=== PATIENT | female | born 1955 ===

== ENCOUNTER 2024-08-21 12:17 | Outpatient (CLI) | payer MEDICARE, SELFPAY ==
--- NOTE | 2024-08-21 | DI.US_ITS ---
Exam(s) US ABDOMEN LIMITED EXAM: US ABDOMEN LIMITED CLINICAL HISTORY: RUQ ABD PAIN R10.11 TECHNIQUE: Ultrasound abdomen performed using standard protocol. COMPARISON: No exams were available for comparison FINDINGS: PANCREAS: Normal where visualized. LIVER: Normal. Hepatopetal flow in the Portal Vein. The liver measures in 13.3 cm length. No evidence of a hepatic mass. GALLBLADDER:There is a 1.6 cm immobile stone in the neck of the gallbladder. There is sludge and debris seen within the gallbladder. No evidence of wall thickening. No pericholecystic fluid identified. BILIARY SYSTEM: Common bile duct measures < 7 mm. No intrahepatic biliary ductal dilation. SMITH'S SIGN: Positive RIGHT KIDNEY: Kidney is normal in size. No evidence of renal calculi. No evidence of hydronephrosis. No renal mass or cyst identified. ASCITES: None seen. IMPRESSION: Immobile 1.6 cm gallstone with tenderness in the right upper quadrant on the examination. The findings are suspicious for acute cholecystitis. DATA REPOSITORY:
== END 2024-08-21 12:37 ==
PROVIDERS: Visit Provider Physician Assistant Medical
DX: R10.11 Right upper quadrant pain (principal); R93.5 Abnormal findings on diagnostic imaging of other abdominal regions, including retroperitoneum
CPT/HCPCS: 76705

== ENCOUNTER 2024-08-21 16:35 | Outpatient (REF) | payer MEDICARE, SELFPAY ==
[2024-08-21 15:51] LABS: Abs Immature Grans 0.03 10^3/uL (0.0-0.06); Absolute Basophil Count 0.07 10^3/uL (0.0-0.2); Absolute Lymphocyte Count 1.72 10^3/uL (1.2-3.4); Absolute Monocyte Count 0.56 10^3/uL (0.1-0.8); Absolute Neutrophil Count 6.23 10^3/uL (1.2-6.7); Basophils % 0.8 %; Eosinophils % 3.4 %; HCT 41.2 % (36.0-46.0); HGB 13.4 g/dL (11.2-15.7); Immature Grans % 0.3 %; Lymphocytes % 19.3 %; MCHC 32.5 % (32.0-36.0); MCV 92 fL (80-95); MPV 10.2 fL (8.0-11.0); Monocytes % 6.3 %; Neutrophils % 69.9 %; Platelet Count 235 10^3/uL (130-400); RBC 4.46 10^6/uL (3.93-5.22); RDW 12.6 % (11.7-14.6); RDW-SD 42.9 fL; WBC 8.91 10^3/uL (4.4-10.8)
[2024-08-21 16:09] LABS: ALT 27 U/L (14-59); AST 14 U/L (15-37); Albumin 3.9 g/dL (3.4-5.0); Alkaline Phosphatase 89 U/L (46-116); BUN 9 mg/dL (7-18); Bilirubin, Total 0.8 mg/dL (0.2-1.0); Calcium 9.4 mg/dL (8.5-10.1); Chloride 104 mmol/L (98-107); Estimated GFR 60.23 (mL/min/1.73m2); Glucose 92 mg/dL (74-106); Lipase 156 U/L (<78); Potassium 4.6 mmol/L (3.5-5.1); Sodium 139 mmol/L (136-145); Total Protein 7.4 g/dL (6.4-8.2)
== END 2024-08-21 16:36 | disposition home or self-care (01) ==
LOC: LBN 16:35
PROVIDERS: Visit Provider Physician Assistant Medical
DX: R10.11 Right upper quadrant pain (principal)
CPT/HCPCS: 80053; 83690; 85025

== ENCOUNTER → 2024-09-03 10:46 | Outpatient (BNVA) | payer MEDICARE, SELFPAY | PROVIDERS: Visit Provider Surgery | DX: K81.0 Acute cholecystitis (principal); R10.11 Right upper quadrant pain | CPT/HCPCS: 99205 ==

== ENCOUNTER 2024-09-03 11:54 | Outpatient (CLI) | payer MEDICARE, SELFPAY ==
[2024-09-03 12:01] LABS: HCT 39.8 % (36.0-46.0); HGB 13.4 g/dL (11.2-15.7); MCH 31.0 pg (27.0-33.0); MCHC 33.7 % (32.0-36.0); MCV 92 fL (80-95); MPV 9.4 fL (8.0-11.0); Platelet Count 195 10^3/uL (130-400); RBC 4.32 10^6/uL (3.93-5.22); RDW 12.7 % (11.7-14.6); RDW-SD 43.0 fL; WBC 5.92 10^3/uL (4.4-10.8)
[2024-09-03 12:59] LABS: ALT 25 U/L (14-59); AST 15 U/L (15-37); Albumin 3.7 g/dL (3.4-5.0); Alkaline Phosphatase 89 U/L (46-116); Anion Gap 6.8 mmol/L (3-11); BUN 13 mg/dL (7-18); Bilirubin, Direct 0.1 mg/dL (0.0-0.2); Bilirubin, Total 0.5 mg/dL (0.2-1.0); CO2 29.2 mmol/L (21.0-32.0); Calcium 9.4 mg/dL (8.5-10.1); Chloride 105 mmol/L (98-107); Estimated GFR 48.39 (mL/min/1.73m2); Glucose 95 mg/dL (74-106); Potassium 4.2 mmol/L (3.5-5.1); Sodium 141 mmol/L (136-145); Total Protein 7.3 g/dL (6.4-8.2)
== END 2024-09-03 11:55 | disposition home or self-care (01) ==
LOC: LBO 11:54
PROVIDERS: Visit Provider Surgery
DX: K81.9 Cholecystitis, unspecified (principal); K81.0 Acute cholecystitis; R10.11 Right upper quadrant pain
CPT/HCPCS: 36415; 80053; 85027; 82248

== ENCOUNTER 2024-09-08 06:52 | Day surgery (SDC) | payer MEDICARE, SELFPAY ==
[2024-09-08 07:36] VITALS: BP 143/72; PULSE 74; RESP 18; TEMP 36.6; O2SAT 97
[2024-09-08] MEDS: Lactated Ringers 1,000 ML 80 ML IV (08:10)
--- NOTE | 2024-09-08 08:29 | W.ANESPRE ---
General Info Date of Service Date Performed: 09/08/24 Height: 5 ft 4 in Weight: 65.5 kg Body Mass Index (BMI): 24.7 Surgical Procedure: Operation Date: 09/08/24 08:40 Proposed Procedure Side Surgeon p Cholecystectomy Laparoscopic Jennie Salomon MD Meds Allergies and Home Medications Allergies Allergy/AdvReac Type Severity Reaction Status Date / Time No Known Allergies Allergy Unverified 09/03/24 10:59 Home Medication ?Medication ?Instructions ?Recorded bupropion HCl 300 mg 24 hr tablet, 300 mg PO QAM 08/26/24 extended release (Wellbutrin XL) coenzyme Q10 10 mg capsule (Co 10 mg PO ONCE 08/26/24 Q-10) dorzolamide 22.3 mg-timolol 6.8 1 drp ophthalmic (eye) BID 08/26/24 mg/mL eye drops lisinopril 20 mg tablet 20 mg PO DAILY 08/26/24 multivitamin 1 tab PO DAILY 08/26/24 omega-3 fatty acids 1,000 mg 1,000 mg PO DAILY 08/26/24 capsule rosuvastatin 5 mg tablet 5 mg PO DAILY 08/26/24 hydrocodone 5 mg-acetaminophen 325 1 tab PO Q6H #10 tabs 09/08/24 mg tablet Current Visit Medications: Current Medications Generic Name Dose Route Start Last Admin Trade Name Freq PRN Reason Stop Dose Admin Hydrocodone Bitart/Acetaminophen 0 tab 09/08/24 08:23 Hydrocodone 5/Acetaminophen 325 Tab PO 10/08/24 08:22 Q3H PRN PRN Pain Hydrocodone Bitart/Acetaminophen 1 tab 09/08/24 08:27 Hydrocodone 5/Acetaminophen 325 Tab PO 10/08/24 08:26 Q6H PRN PRN Ringer's Solution 1,000 mls @ 80 mls/hr 09/08/24 06:00 09/08/24 08:10 IV 09/08/24 23:59 80 mls/hr INFUSION RAGHAV Administration Cefazolin Sodium/Dextrose 2 gm in 50 mls @ 100 mls/hr 09/08/24 06:00 Ancef Duplex IVPB 09/08/24 23:59 PREOP RAGHAV Ondansetron HCl 4 mg/ Sodium 52 mls @ 200 mls/hr 09/08/24 08:23 Chloride IVPB 10/08/24 08:22 Q6H PRN PRN IV Miscellaneous Supplies 1 each 09/08/24 06:00 Iv Access IV 09/08/24 23:59 DIRECTED RAGHAV Ketorolac Tromethamine 15 mg 09/08/24 08:23 Ketorolac 15 Mg/Ml Vial IVP 09/08/24 08:24 NOW ONE Lisinopril 20 mg 09/08/24 08:30 Lisinopril 20 Mg Tab PO 10/08/24 08:29 DAILY RAGHAV Multivitamins 1 tab 09/08/24 08:30 Multivitamin Tab PO 10/08/24 08:29 DAILY RAGHAV Non-Formulary Medication 300 mg 09/08/24 08:30 Bupropion Hcl [Wellbutrin Xl] PO 10/08/24 08:29 QAM RAGHAV Non-Formulary Medication 10 mg 09/08/24 08:30 Coenzyme Q10 [Co Q-10] PO 10/08/24 08:29 ONCE RAGHAV Non-Formulary Medication 1 drp 09/08/24 08:30 Dorzolamide-Timolol OP 10/08/24 08:29 BID RAGHAV Non-Formulary Medication 1,000 mg 09/08/24 08:30 Henning-3 Fatty Acids PO 10/08/24 08:29 DAILY RAGHAV Rosuvastatin Calcium 5 mg 09/08/24 08:30 Rosuvastatin 5 Mg Tab PO 10/08/24 08:29 DAILY RAGHAV Sodium Chloride 0 ml 09/08/24 06:00 Normal Saline Flush 10 Ml Syr IV 09/08/24 23:59 PRN PRN Sodium Chloride 0 ml 09/08/24 06:00 Normal Saline 10 Ml Vial IJ 09/08/24 23:59 DIRECTED PRN Sterile Water 0 ml 09/08/24 06:00 Water,Injection,Sterile 10 Ml Vial IJ 09/08/24 23:59 DIRECTED PRN PFSH Active Problems Active Problems: Problem Status Onset Code Hyperlipidemia Acute E78.5 Hypertension Chronic I10 Medical History Medical History Osteoporosis Occult blood positive stool Dyspnea Constipation Tendinitis of right elbow Cervical radiculopathy Left bundle branch block Hives History of screening mammography (~09/14/20) History of bone density study (~01/07/19) Glaucoma Depression Anxiety Right upper quadrant pain (~08/2024) Acute cholecystitis Surgical History Surgical History History of colonoscopy (~1999) per PCP [place] info 1999 Tobacco Smoking/Tobacco Use Status: Never Alcohol Alcohol Intake: current Alcohol intake frequency: a few times a month Substance Use Substance use: Never Substance use type: does not use Vital Signs and Lab Results Vital Signs Most Recent Vital Signs in EMR: Most Recent Vital Signs Temp Pulse Resp BP Pulse Ox 36.6 C 74 18 143/72 H 97 09/08/24 07:36 09/08/24 07:36 09/08/24 07:36 09/08/24 07:36 09/08/24 07:36 Lab Results Complete Blood Count: WBC, (4.4-10.8) 5.92 10^3/uL 09/03/24, 11:54 RBC, (3.93-5.22) 4.32 10^6/uL 09/03/24, 11:54 Hgb, (11.2-15.7) 13.4 g/dL 09/03/24, 11:54 Hct, (36.0-46.0) 39.8 % 09/03/24, 11:54 Plt Count, (130-400) 195 10^3/uL 09/03/24, 11:54 Complete Metabolic Panel: Sodium, (136-145) 141 mmol/L 09/03/24, 11:54 Potassium, (3.5-5.1) 4.2 mmol/L 09/03/24, 11:54 Chloride, (98-107) 105 mmol/L 09/03/24, 11:54 Carbon Dioxide, (21.0-32.0) 29.2 mmol/L 09/03/24, 11:54 BUN, (7-18) 13 mg/dL 09/03/24, 11:54 Creatinine, (0.55-1.02) 1.2 mg/dL H 09/03/24, 11:54 Est GFR (CKD-EPI 2020), (mL/min/1.73m2) 48.39 09/03/24, 11:54 Calcium, (8.5-10.1) 9.4 mg/dL 09/03/24, 11:54 Albumin, (3.4-5.0) 3.7 g/dL 09/03/24, 11:54 Glucose, (74-106) 95 mg/dL 09/03/24, 11:54 Liver Function Panel: ALT, (14-59) 25 U/L 09/03/24, 11:54 AST, (15-37) 15 U/L 09/03/24, 11:54 Pancreas Panel: Lipase, (<78) 156 U/L H 08/21/24, 11:45 Anesthesia Assessment and Plan Anesthesia History Personal History: No History of Anesthesia Complications Family History: No Family History of Anesthesia Complications Exercise Tolerance Exercise Tolerance: Metabolic Equivalents>4 Pertinent Negatives Pertinent Negatives: No Symptoms of GERD Cardiac & Pulmonary Exam Cardiac Exam: Normal S1/S2 Heart Sounds Pulmonary Exam: Clear Bilateral Breath Sounds Implantable Cardiac Device Does patient have a Pacemaker or an ICD?: No Airway Exam Known Difficult Airway: No Mallampati Class: 2 Mouth Opening: Normal (> 3cm) Thyromental Distance: Greater than 3 cm Neck Range of Motion: Full ROM Neck Circumference: Normal Teeth Condition: Normal Dentition ASA Classification ASA Score: ASA 2 Emergency Case?: No NPO Status NPO Status: NPO Clears >2 hours, Solids >8 hours Anesthesia Plan Resuscitation Status: Full Code Anesthesia Technique: General Anesthesia Airway Planned: Endotracheal Tube Monitors Used: Standard Monitors and SedLine
--- NOTE | 2024-09-08 08:29 | W.PM.DSUDISC ---
Date of service: 09/08/24 Discharge Plan Disposition Patient Disposition: Home Condition: Stable Discharge Details Reason For Visit: Cholecystectomy Attending Provider: Jennie Salomon Primary Care Provider: Unknown,Unknown Recommendations for Follow Up Recommended tests to be ordered by follow up provider: None, follow up in surgery clinic Home Meds and New Rx's Prescriptions: New hydrocodone-acetaminophen 5-325 mg tablet 1 tab PO Q6H Qty: 10 0RF No Action lisinopril 20 mg tablet 20 mg PO DAILY dorzolamide-timolol 22.3-6.8 mg/mL drops 1 drp ophthalmic (eye) BID bupropion HCl [Wellbutrin XL] 300 mg tablet extended release 24 hr 300 mg PO QAM multivitamin Tablet 1 tab PO DAILY omega-3 fatty acids 1,000 mg capsule 1,000 mg PO DAILY coenzyme Q10 [Co Q-10] 10 mg capsule 10 mg PO ONCE rosuvastatin 5 mg tablet 5 mg PO DAILY Discharge Instructions Instructions: Cholecystectomy (DC) Additional Instructions: Shower 09/10/24. Wash gently over steristrips with soapy hands, rinse, pat dry. Don't peel strips or submerge them under water. The longer they stay on, the nicer the scars will heal. Ok to walk, climb stairs, and resume normal activities of daily living. Do not lift/push/pull more than 20lb for 4 weeks. Diet as tolerated, allow your body to naturally make adjustments in the bile flow after surgery. Loose stools may occur. We will discuss them at follow up if still present in 2 weeks. Call or return for fever or incisional problems. Stand Alone Forms: Anesthesia Discharge Inst., [place] ([facility]U) Shower/Bathe:: 48 hours Diet:: As Tolerated Discharge Orders Discharge Orders: Discharge Order (Routine); Ordered 09/08/24 Ordered By: Jennie Salomon DS: Diagnosis Discharge Diagnosis (1) Acute cholecystitis due to biliary calculus: Status: Acute Asessment and Plan: cholecystectomy performed
[2024-09-08 08:50] VITALS: BMI 24.7
[2024-09-08] MEDS: ceFAZolin 2 GM/50 ML BAG IVPB (09:45)
[2024-09-08] MEDS: Bupivacaine 0.5% Pres-Free W/EPI 30 ML VIAL (10:15)
--- NOTE | 2024-09-08 11:20 | GB_PTH ---
PATIENT: Shilpa Werner LOC: PERI U#:[id number] AGE/SX: 69/F ROOM: RE09/08/[address]: Jennie Salomon MD : [id number] BED: DIS: 09/08/2024 SPEC #: [id number] RECD: 09/08/24 12:31 STATUS: [place] REQ #: [id number] KISHAN: 09/08/24 11:[address]: Jennie Salomon DEPT: Surgical Specimen RECD BY: Rhianna Cortez ENTERED: 09/08/24 12:32 SP TYPE: GB OTHR DR: Unknown,Unknown Tissues: 1 - GALLBLADDER Procedures: GROSS AND MICRO LEVEL 3 Comments: [id number]
[2024-09-08 12:16] VITALS: TEMP 36.2
[2024-09-08 12:38] VITALS: TEMP 36.5
[2024-09-08] MEDS: fentaNYL 100 MCG/2 ML VIAL IVP ×2 (13:00→13:05)
[2024-09-08 13:25] VITALS: BP 143/83; PULSE 73; TEMP 36.6; O2SAT 99
[2024-09-08] MEDS: oxyCODONE 5 MG TAB PO (13:35)
--- NOTE | 2024-09-08 13:56 | W.PM.OP ---
Operative Note Operative Note PRE-OP DIAGNOSIS: Acute cholecystitis POST-OP DIAGNOSIS: other (Acute cholecystitis, hydrops of gallbladder) PROCEDURE: Laparoscopic cholecystectomy SURGEON: Jennie Salomon ASSISTING SURGEON: Joe Bearden ANESTHESIA TYPE: Local By Surgeon and General LMA/ETT Refer to Anesthesia Record ESTIMATED BLOOD LOSS: 75 PATHOLOGY: other (gallbladder) COMPLICATIONS: None Findings: Large impacted stone, hydrops of gallbladder. Contaminated field. Procedure Description: This patient is a 69-year-old female who was seen and evaluated in the office for acute cholecystitis. She had experienced symptoms within the preceding month and ultrasound showed findings consistent with acute cholecystitis. Lab and ultrasound findings ruled out signs of choledocholithiasis or pancreatitis. Cholecystectomy was indicated. We discussed the procedure risks benefits alternatives and expectations in the office, and all of the patient's questions were answered on the day of surgery informed consent was obtained and she was taken to the operating room. In the operating room she was placed supine on the operating table. SCDs were placed and all pressure points were padded appropriately. General anesthesia was induced. Timeout was performed. The abdomen was prepped and draped in the usual sterile fashion. An infraumbilical incision was made following infiltration of local anesthetic. The umbilical stalk was grasped and elevated and the fascia cleared of subcutaneous fat. An incision was made in the fascia and a Rebekah clamp was used to enter the peritoneum. A finger sweep confirmed no structures against the abdominal wall. A Hernandez trocar was placed and the abdomen was insufflated to 15 mmHg. 3 additional ports were placed under direct visualization. A 5 mm port was placed in the epigastrium and 2 were placed in the right upper quadrant. The patient was placed in reverse Trendelenburg position and rotated toward the left. The gallbladder was grasped and retracted cephalad there were acute inflammatory changes including thickening of the gallbladder wall, edema, and adhesions to the omentum and duodenum. The adhesions were taken down from between the gallbladder and the omentum using a LigaSure device blunt dissection and suction tool were used to pull the duodenum off of the gallbladder. Dissection was carried out along the gallbladder infundibulum this dissection was carried medially to close triangle 2 tubular structures were dissected free and were identified as the cystic duct and the cystic artery the liver bed was cleared and a critical view was obtained the structures were and transected with EndoShears. The gallbladder was then removed from the liver bed using hook cautery tool. The plane between inflamed gallbladder and liver was indistinct, and spillage of gallbladder contents occurred during this process. The gallbladder fluid was clear indicating hydrops of the gallbladder. The impacted stone at the neck of the gallbladder was milked into the dome of the gallbladder. The gallbladder was placed into an Endo Catch bag liver bed was irrigated and hemostasis obtained by use of cautery. Irrigation fluid was removed. The Endo Catch bag was pulled from the umbilical site. The Endo Catch bag tore and the gallbladder and stone had to be removed separately. The large gallstone was retrieved into an Endo Catch bag and removed through the umbilical site. The abdomen was then desufflated and all ports were removed. The umbilicus was washed and closed with an 0 Vicryl [id number] stitch. The incisions were all washed and dried. The incisions were all closed with 4-0 Monocryl in subcuticular simple interrupted fashion. The skin was washed and dried. Benzoin and Steri-Strips were applied. All sponge and instrument counts were correct at the end of the case the patient tolerated the procedure well. She extubated in the operating room and transferred to the recovery room in stable condition Date of Procedure: 09/08/24
--- NOTE | 2024-09-08 14:18 | W.ANESPOSTOP ---
Postoperative Evaluation Date, Time and Location Date Performed: 09/08/24 Time Performed: 14:18 Patient Location: Day Surgery Unit Vital Signs Most Recent Imported Vital Signs: Most Recent Vital Signs Temp Pulse Resp BP Pulse Ox 36.6 C 73 18 143/83 H 99 09/08/24 13:25 09/08/24 13:25 09/08/24 07:36 09/08/24 13:25 09/08/24 13:25 Pain Score Most Recent Pain Score: Most Recent Pain Score Pain Level 5 09/08/24 13:07 Assessment Mental Status: Awake (Alert & Oriented to Patient Baseline) Airway and Respiratory Function: Patent airway with normal (patient baseline) respiratory exam Cardiovascular Function: Hemodynamically Stable Hydration Status: Adequately Hydrated Nausea & Vomiting: No Nausea or Vomiting Pain: Pt. Denies Any Pain Peripheral Nerve Block: Patient did not receive a nerve block
[2024-09-08 14:19] VITALS: BP 144/80; PULSE 79; RESP 18; TEMP 36.6; O2SAT 98
--- NOTE | 2024-09-08 15:04 | NUR.NOTE ---
pt had a brief period of nausa that passed after she stood and ambulated to the bathroom Nursing Note:
== END 2024-09-08 14:45 | disposition home or self-care (01) ==
PROVIDERS: Visit Provider Surgery
PROC: 0FT44ZZ Resection of Gallbladder, Percutaneous Endoscopic Approach (ICD-10-PCS; CPT 47562; principal; 2024-09-08 08:30)
DX: K81.2 Acute cholecystitis with chronic cholecystitis (principal); K82.1 Hydrops of gallbladder
CPT/HCPCS: 47562; 88304; J0131; J0690; J1100; J1885; J2003; J2405; J2704; J3010

== ENCOUNTER → 2024-09-24 10:46 | Outpatient (BNVA) | payer MEDICARE, SELFPAY | PROVIDERS: Visit Provider Surgery | DX: Z90.49 Acquired absence of other specified parts of digestive tract (principal) | CPT/HCPCS: 99024 ==